=== PATIENT | female | born 1955 | race Two or more races ===

== ENCOUNTER 2019-01-06 06:28 | Day surgery (SDC) | payer OTHER | END 2019-01-06 10:45 | disposition home or self-care (01) | LOC: AMB-ENDOS 06:28 | DX: D12.4 Benign neoplasm of descending colon (principal); K64.1 Second degree hemorrhoids; K57.30 Diverticulosis of large intestine without perforation or abscess without bleeding ==

== ENCOUNTER 2019-01-10 06:31 | Emergency (ER) | payer OTHER ==
[~2019-01-10] VITALS: Ht 167.6 cm; Wt 64.4 kg
[2019-01-10] MEDS ORDERED: NEURONTIN300 MG (06:52)
[2019-01-10] MEDS ORDERED: LISINOPRIL10 MG (06:52)
[2019-01-10] MEDS ORDERED: METOPROLOL SUCC25 MG (06:52)
[2019-01-10] MEDS ORDERED: ZANTAC300 MG (06:52)
[2019-01-10] MEDS ORDERED: ZOCOR20 MG (06:52)
[2019-01-10] MEDS ORDERED: JENTADUETO 2.51 EAC2 (06:52)
[2019-01-10] MEDS ORDERED: PRILOSEC OTC20 MG (06:53)
[2019-01-10] MEDS ORDERED: XANAX XR2 MG (06:53)
== END 2019-01-10 11:26 | disposition home or self-care (01) ==
LOC: ER 06:31
DX: K58.8 Other irritable bowel syndrome (principal); N39.0 Urinary tract infection, site not specified

== ENCOUNTER 2020-02-02 09:18 | Day surgery (SDC) | payer OTHER ==
[~2020-02-02 09:18] MED LIST: JENTADUETO 2.51 EAC2; LISINOPRIL10 MG; METOPROLOL SUCC25 MG; NEURONTIN300 MG; PRILOSEC OTC20 MG; XANAX XR2 MG; ZANTAC300 MG; ZOCOR20 MG
== END 2020-02-02 13:40 | disposition home or self-care (01) ==
LOC: AMB-ENDOS 09:18
PROVIDERS: ATTEND Colon & Rectal Surgery
DX: K63.5 Polyp of colon (principal); K64.2 Third degree hemorrhoids; Z20.828 Contact with and (suspected) exposure to other viral communicable diseases